=== PATIENT | female | born 1955 | race Caucasian/White ===

== ENCOUNTER → 2017-09-28 | Day surgery (SDC) | payer OTHER ==
[~2017-09-28] VITALS: Ht 160 cm; Wt 85.5 kg
[~2017-09-28] MED LIST: ALPR0.5T7 PO; ANGIOMAX 250 MG VIAL IV ONE; CONJ.6252 PO; FLUT100I IN; IOHEXOL 350 MG/ML 100ML IJ ONE; LIDOCAINE 2%HCL (LOCAL ANESTH.) INJ 20ML MDV ONE; LOSA100T25 PO; METO25TA3 PO; MIDAZOLAM HCL 1MG/1ML-2 ML VIAL ONE; SERT-138 PO; SODIUM CHL 0.9% 0 ML ONE; TRAZ150T79 PO; fentaNYL CITRATE 100 MCG/2 ML VL ONE
== END | disposition home or self-care (01) ==
LOC: CATH 11:55
PROVIDERS: ATTEND Internal Medicine Cardiovascular Disease
DX: I49.9 Cardiac arrhythmia, unspecified (principal); I42.9 Cardiomyopathy, unspecified; E78.00 Pure hypercholesterolemia, unspecified; E11.9 Type 2 diabetes mellitus without complications; I48.91 Unspecified atrial fibrillation; J44.9 Chronic obstructive pulmonary disease, unspecified; I11.9 Hypertensive heart disease without heart failure; J43.8 Other emphysema; E66.9 Obesity, unspecified; Z91.041 Radiographic dye allergy status; Z88.0 Allergy status to penicillin; Z88.5 Allergy status to narcotic agent; Z88.1 Allergy status to other antibiotic agents; Z86.73 Personal history of transient ischemic attack (TIA), and cerebral infarction without residual deficits; Z87.891 Personal history of nicotine dependence; Z68.33 Body mass index [BMI] 33.0-33.9, adult
CPT/HCPCS: 93458; C1751; C1760; C1894; J1644; J2250; J3010; J7040; Q9967; 99152; 99153